=== PATIENT | male | born 1980 | race Caucasian/White ===

== ENCOUNTER 2023-06-01 21:26 | Emergency (ER) | payer SELFPAY ==
[2023-06-01 21:26] VITALS: BP 109/73; PULSE 101; RESP 16; TEMP 37.1; O2SAT 99; BMI 29.2
[2023-06-01 21:38] VITALS: BP 109/73; PULSE 101; RESP 16; TEMP 37; O2SAT 98
--- NOTE | 2023-06-01 21:39 | PC.NURSE ---
upon pt arrival pt was [id number] and pt states has no c/o and doesn't want to be chack out. Mother arrived and sign AMA. pt ambulated out of ER with mother
== END 2023-06-01 21:39 | disposition left against medical advice (07) ==
LOC: ER 21:44
PROVIDERS: Emergency Provider Emergency Medicine
DX: Z53.21 Procedure and treatment not carried out due to patient leaving prior to being seen by health care provider (principal)
CPT/HCPCS: 99211